=== PATIENT | male | born 2005 | race Hispanic/Latino ===

== ENCOUNTER 2025-03-16 17:04 | Inpatient (IN) | payer BC, SELFPAY ==
[2025-03-16 18:53] VITALS: BMI 30.1
[2025-03-16] MEDS ORDERED: Senokot S 8.6-50 MG TAB PO PRN (20:13)
[2025-03-16] MEDS ORDERED: Calcium Carbonate 500 MG ChewTAB PO PRN (20:13)
[2025-03-16] MEDS ORDERED: Melatonin 3 MG TAB PO PRN (20:13)
[2025-03-16] MEDS ORDERED: Bisacodyl 10 MG SUPP PR PRN (20:13)
[2025-03-16] MEDS ORDERED: Ondansetron PF 4 MG/2 ML Vial IVP PRN (20:13)
[2025-03-16] MEDS ORDERED: Magnesium 2 GM/50 ML(in water) 2 GM in Premix 1 BAG IVPB PRN (21:00)
[2025-03-16] MEDS ORDERED: Potassium Chloride 20 MEQ in Premix 1 BAG IVPB PRN (21:00)
[2025-03-16] MEDS ORDERED: PHOS-NAK 1 PKT PACK PO PRN (21:00)
[2025-03-16] MEDS: Acetaminophen 325 MG TAB PO PRN (22:33)
[2025-03-17 00:56] LABS: #Basophils Less than 0.03 10x3/uL (0.0-0.2); #Eosinophils Less than 0.03 10x3/uL (0.0-0.7); #Monocytes 1.37 10x3/uL (0.11-0.59); #Neutrophils 17.26 10x3/uL (1.40-6.50); %Basophils 0.1 % (0.0-1.0); %Eosinophils 0.0 % (0.0-10.0); %Lymphocytes 5.4 % (28.0-48.0); %Monocytes 6.9 % (0.0-4.0); %Neutrophils 87.2 % (31.0-61.0); Hematocrit 41.1 % (42.0-52.0); Hemoglobin 13.5 g/dL (14.0-18.0); Mean Corpuscular Hemoglobin 27.3 pg (25.0-35.0); Mean Corpuscular Volume 83.2 fL (78.0-98.0); Platelet Count 220 10x3/uL (130-400); Red Blood Cell (RBC) Count 4.94 mill/uL (4.00-5.20); White Blood Cell (WBC) Count 19.80 10x3/uL (4.8-10.8)
[2025-03-17 01:24] LABS: ALT (SGPT) 27 U/L (Less than 45); AST (SGOT) 19 U/L (11-34); Albumin 4.1 g/dL (3.1-4.5); Alkaline Phosphatase 84 U/L (50-130); Anion Gap 16 mmol/L (10-20); BUN (Urea Nitrogen) 11 mg/dL (8.9-20.6); Bilirubin, Total 0.6 mg/dL (0.3-1.2); Calc. Creatinine Clearance 220 mL/min (70-130); Calcium 9.1 mg/dL (7.8-10.44); Carbon Dioxide 20 mmol/L (22-29); Chloride 110 mmol/L (98-107); Globulin 2.8 g/dL (2.4-3.5); Glucose 113 mg/dL (70-105); Potassium 3.6 mmol/L (3.5-5.1); Sodium 142 mmol/L (136-145)
[2025-03-17] MEDS: Enoxaparin 40 MG (0.4 mL) SYRINGE SC SCH (08:55)
[2025-03-18 11:08] LABS: #Basophils 0.04 10x3/uL (0.0-0.2); #Eosinophils 0.96 10x3/uL (0.0-0.7); #Monocytes 0.69 10x3/uL (0.11-0.59); #Neutrophils 3.69 10x3/uL (1.40-6.50); %Basophils 0.5 % (0.0-1.0); %Eosinophils 12.2 % (0.0-10.0); %Lymphocytes 31.3 % (28.0-48.0); %Monocytes 8.7 % (0.0-4.0); %Neutrophils 46.8 % (31.0-61.0); Hematocrit 44.1 % (42.0-52.0); Hemoglobin 14.5 g/dL (14.0-18.0); Mean Corpuscular Hemoglobin 27.7 pg (25.0-35.0); Mean Corpuscular Volume 84.2 fL (78.0-98.0); Platelet Count 219 10x3/uL (130-400); Red Blood Cell (RBC) Count 5.24 mill/uL (4.00-5.20); White Blood Cell (WBC) Count 7.89 10x3/uL (4.8-10.8)
[2025-03-18 11:39] LABS: Anion Gap 14 mmol/L (10-20); BUN (Urea Nitrogen) 17 mg/dL (8.9-20.6); Calc. Creatinine Clearance 187 mL/min (70-130); Calcium 8.9 mg/dL (7.8-10.44); Carbon Dioxide 22 mmol/L (22-29); Chloride 108 mmol/L (98-107); Glucose 89 mg/dL (70-105); Potassium 3.6 mmol/L (3.5-5.1); Sodium 140 mmol/L (136-145)
[2025-03-18 11:55] VITALS: BP 146/83; TEMP 98.6
== END 2025-03-18 12:01 | disposition home or self-care (01) | DRG 177 ==
LOC: INTOOBSV 18:42 → T4-A 18:42 → OBSVTOIN 03-17 13:40
PROVIDERS: ADMIT Internal Medicine; ATTEND Internal Medicine
DX: J69.0 Pneumonitis due to inhalation of food and vomit (principal); J96.01 Acute respiratory failure with hypoxia; B34.8 Other viral infections of unspecified site
CPT/HCPCS: 36415; 80048; 80053; 85025; 94640; 96374; 96376; G0378; J0295; J1650